=== PATIENT | male | born 1975 | race Caucasian/White ===

== ENCOUNTER 2016-04-21 09:16 | Emergency (ER) ==
[2016-04-21 10:03] LABS: URINE CULTURE PL NEEDED? NO; URINE SOURCE CLEAN CATCH
[2016-04-21 10:17] LABS: BILIRUBIN URINE NEGATIVE (NEGATIVE); BLOOD URINE NEGATIVE (NEGATIVE); CLARITY CLEAR (CLEAR); COLOR YELLOW; GLUCOSE URINE NEGATIVE (NEGATIVE); LEUKOCYTES URINE NEGATIVE (NEGATIVE); NITRITE URINE NEGATIVE (NEGATIVE); PROTEIN URINE TRACE mg/dL (NEGATIVE); URINE WBC <10 /HPF (<10); UROBILINOGEN URINE NORMAL
[2016-04-21 10:18] LABS: URINE EPITHELIAL CELLS <10 /HPF (<10)
[2016-04-21] MEDS ORDERED: ZOFRAN IV ONE (11:02)
[2016-04-21] MEDS ORDERED: MORPHINE IV ONE (11:02)
--- NOTE | 2016-04-21 11:06 | PROVIDER DOCUMENTATION ---
HPI-Abdominal Pain/GI Problem - General Source: patient - History of Present Illness-ABD Nature of Presenting Problems: Pt is 40 y/o M presents to the ED with abdominal pain. Pt states pain started 3 days ago. Pt states 2 days ago having subjective F. Pt states yesterday having bright red blood in stool. Pt denies N/V/D. Pt denies back pain. Abdominal Pain Onset Location: reports: RLQ, LLQ, suprapubic Pain Radiation: reports: no radiation Quality of Pain: reports: aching Severity in ED: reports: mild Onset/Duration: reports: 3 days ago Timing: reports: still present Activities at Onset: reports: light activity Exposure to sick contacts?: No Modifying Factors: improves with: nothing Associated Symptoms: reports: fever/chills (subjective F). denies: anxiety, arm pain, back/neck pain, chest pain, constipation, cough, diaphoresis, diarrhea , dizziness, EENT symptoms, fatigue, genitourinary problems, headaches, heartburn, joint pain, loss of appetite, malaise, muscle aches, sinus congestion /drainage, nausea, rash, seizure, shortness of breath, sensory/motor loss, pain with inspiration, swelling/mass in abdomen, syncope, vomiting, weakness, trouble walking Last BM: 3 days ago Dark Stools Present?: reports: bright red blood Rectal Bleeding: reports: blood mixed with stool Rectal Pain: reports: none Emesis Description: reports: none Bruising or Bleeding Gums?: No Similar Symptoms Previously?: Yes Recently seen or treated by another doctor?: No <Katie Britt - Last Filed: 04/21/16 12:38> <Jose Abad - Last Filed: 04/21/16 14:45> - General Chief Complaint: Flank Pain Stated Complaint: FLANK PAIN Time Seen by Provider: 04/21/16 10:49 Allergies/Adverse Reactions: Patient Allergies Allergy/AdvReac Type Severity Reaction Status Date / Time sulfamethoxazole Allergy SWELLING Verified 04/21/16 09:32 [From Bactrim] trimethoprim [From Bactrim] Allergy SWELLING Verified 04/21/16 09:32 Home Medications: Home Medication List Medication Instructions Recorded Confirmed Last Taken Type Amoxicillin/Potassium Clav 1 each PO BID #20 tablet 04/21/16 Unknown Rx [Augmentin 875-125 Tablet] Hydrocodone/Acetaminophen [[place] 1 each PO Q4-6H PRN PRN #12 tablet 04/21/16 Unknown Rx 5-325 Tablet] Metronidazole [Flagyl] 500 mg PO TID #30 tablet 04/21/16 Unknown Rx Review of Systems - Adult - REVIEW OF SYSTEMS - ADULT Constitutional: denies: chills, fever Eyes: denies: blurred vision, double vision Ears, Nose, Mouth & Throat: denies: ear pain, nose pain, throat pain Cardiovascular: denies: chest pain, heart murmur, irregular heart rate Respiratory: denies: cough, shortness of breath, wheezing Gastrointestinal: reports: abdominal pain (RLQ, LLQ, and suprapubic), rectal bleeding. denies: diarrhea, nausea, vomiting Genitourinary: denies: dysuria, hematuria Musculoskeletal: denies: bone pain, joint pain, neck pain Integumentary: denies: hives, itching Neurological: denies: dizziness/vertigo, headache/migraines Psychiatric: reports: no symptoms reported Endocrine: reports: no symptoms reported Hematologic/Lymphatic: reports: no symptoms reported Allergic/Immunologic: reports: no symptoms reported All Other Systems: Reviewed and Negative <Katie Britt - Last Filed: 04/21/16 12:38> Past History - Adult - PAST MEDICAL HISTORY-ADULT Review of Records: reports: Nursing Assessment Review, Medications Reviewed, Social history reviewed & non-contributory. Major Childhood Illnesses: reports: denies history Cardiovascular: reports: HTN Respiratory: reports: denies history Gastrointestinal: reports: denies history Obstetrical/Gynecological: reports: denies history Genitourinary: reports: kidney stones Musculoskeletal: reports: denies history Neurological: reports: denies history Endocrine/Immune: reports: denies history Other Conditions: reports: denies history - PRIOR SURGERIES/PROCEDURES Surgical/Procedure History: reports: reviewed, not pertinent - IMMUNIZATION STATUS Childhood Immunizations: See Nurse Assessment Flu Vaccine: See Nurse Assessment - FAMILY HISTORY Family History: reviewed, not pertinent - SOCIAL HISTORY Smoking: cigarettes, less than 1 pack/day Provider spent 3-5 mins advising pt. on dangers of tobacco.: Discussed manners to quit use, and f/u contacts for add'l counseling. Substance Use: alcohol Alcohol Use Frequency: every day Number of drinks per typical drinking period:: 3-4 drinks Living Situation: family <Katie Britt - Last Filed: 04/21/16 12:38> Physical Exam-General - PHYSICAL EXAM-ADULT Initial Vital Signs Reviewed: Yes - CONSTITUTIONAL General Appearance: appears well, alert, no apparent distress - EYES Eyes: PERRL/EOMI, pink conjunctivae, fundi clear, no AV nicking - HEAD, EARS, NOSE, MOUTH & THROAT HENMT: normocephalic/atraumatic, moist mucous membranes, normal ENT inspection, TMs normal, pharynx normal - NECK Neck: non-tender, full range of motion, supple, normal inspection - RESPIRATORY Respiratory: chest non-tender, lungs clear, normal breath sounds, no pleuratic chest pain, no respiratory distress, no accessory muscle use - CARDIOVASCULAR Cardiovascular: normal peripheral pulses, regular rate, rhythm, no edema, no gallop, no JVD, no murmur - GASTROINTESTINAL (ABDOMEN) Abdominal Exam: normal bowel sounds, soft, no organomegaly, no pulsatile mass, tenderness (RLQ, LLQ and suprapubic) - LYMPHATIC Lymphatic: no adenopathy - MUSCULOSKELETAL Back Exam: normal inspection, no CVA tenderness, no vertebral tenderness Extremity: normal range of motion, non-tender, no pedal edema, no calf tenderness - SKIN Integumentary: normal color, normal turgor, warm/dry - NEUROLOGIC Neurologic: grossly normal - PSYCHIATRIC Psych/Mental Status: normal mood/affect, oriented x 3 <Katie Britt - Last Filed: 04/21/16 12:38> Progress - PLAN OF CARE/RESULTS Progress/Plan/Lab Results: Laboratory Tests 04/21/16 09:55 Urine Source CLEAN CATCH Urine Color YELLOW Urine Clarity CLEAR Urine pH 6.0 Ur Specific [place] 1.020 Urine Protein TRACE A Urine Ketones NEGATIVE Urine Blood NEGATIVE Urine Nitrite NEGATIVE Urine Bilirubin NEGATIVE Urine Urobilinogen NORMAL Urine Microscopic RBC Not Reportable Urine WBC NEGATIVE Urine Microscopic WBC <10 Ur Epithelial Cells <10 Urine Bacteria 1+ Urine Glucose NEGATIVE Orders Category Date Time Status CT ABD/PELVIS W/ IV CONT ONLY [CT] Stat Exams 04/21/16 11:01 Ordered BASIC METABOLIC PANEL [CHEM] Stat Lab 04/21/16 11:01 Ordered CBC WITH ELECTRONIC DIFF [HEME] Stat Lab 04/21/16 11:01 Ordered UA [URINALYSIS PL W/POSS RFLX CULT] [URINALYSIS] Stat Lab 04/21/16 09:55 Completed Morphine Med 04/21/16 11:02 Discontinued 4 mg IV NOW ONE Ondansetron [Zofran] Med 04/21/16 11:02 Discontinued 8 mg IV NOW ONE Vital Signs - 24 hr 04/21/16 09:26 Temperature 98.2 F Pulse Rate 84 Respiratory 18 Rate O2 Sat by Pulse 98 Oximetry Laboratory Tests 04/21/16 04/21/16 04/21/16 09:55 11:18 11:18 WBC 10.08 RBC 5.29 Hgb 16.5 Hct 48.4 MCV 91.5 MCH 31.2 H MCHC 34.1 RDW Std Deviation 11.9 Plt Count 286 MPV 10.5 H Immature Gran % (Auto) 0.3 Neut % (Auto) 68.8 Lymph % (Auto) 22.7 [place] % (Auto) 6.8 Eos % (Auto) 1.1 Baso % (Auto) 0.3 Immature Gran # (Auto) 0.03 Neut # (Auto) 6.93 H Lymph # (Auto) 2.29 [place] # (Auto) 0.69 H Eos # (Auto) 0.11 Baso # (Auto) 0.03 Sodium 137 Potassium 4.1 Chloride 101 Carbon Dioxide 24 L Anion Gap 12 BUN 15 Creatinine 1.1 Estimated GFR/1.73 m2 > 60 BUN/Creatinine Ratio 14 Glucose 78 Calculated Osmolality 274 Calcium 9.9 Urine Source CLEAN CATCH Urine Color YELLOW Urine Clarity CLEAR Urine pH 6.0 Ur Specific [place] 1.020 Urine Protein TRACE A Urine Ketones NEGATIVE Urine Blood NEGATIVE Urine Nitrite NEGATIVE Urine Bilirubin NEGATIVE Urine Urobilinogen NORMAL Urine Microscopic RBC Not Reportable Urine WBC NEGATIVE Urine Microscopic WBC <10 Ur Epithelial Cells <10 Urine Bacteria 1+ Urine Glucose NEGATIVE - CT/MRI 1 CT Study: Abdomen, Pelvis Impression: Abnormal (apparent sold exophytic lesion in the right mid kidney. in the setting of a urinary tract infection, this could represent a renal carbuncle, however, the possiblity of a solid renal neoplasm cannot be excluded. ) CT Results: sigmoid diverticulitis, as described <Katie Britt - Last Filed: 04/21/16 12:38> Departure <Katie Britt - Last Filed: 04/21/16 12:38> - Departure Time of Disposition Order: 14:42 Certified Medical Emergency: Emergent <Jose Abad Last Filed: 04/21/16 14:45> - Departure DIAGNOSIS: Diverticulitis of sigmoid colon Disposition: HOME 01 Condition: Good Additional Instructions: ED Follow Up Instructions: You have been treated by a care provider in the Emergency Department. These instructions are being provided to you so you can have an understanding of how to care for yourself upon discharge. Upon discharge from the Emergency Department, you are responsible for making arrangements for follow-up care by a physician of your choice. Take all prescribed medications as directed. Return to the Emergency Department immediately for any new or worsening symptoms. You may call the Physician Referral phone number at [phone] to obtain a list of Physicians who are taking new patients. Prescriptions: Amoxicillin/Potassium Clav [Augmentin 875-125 Tablet] 1 each PO BID #20 tablet Metronidazole [Flagyl] 500 mg PO TID #30 tablet Hydrocodone/Acetaminophen [[place] 5-325 Tablet] 1 each PO Q4-6H PRN PRN #12 tablet PRN Reason: Pain Referrals: None,PCP [Primary Care Provider] - Greg Dash MD [STAFF PHYSICIAN] - Instructions: Diverticulitis Attestation - Scribe Verification/Attestation Scribe:: Katie Britt Acting as Scribe for:: Jose Abad Scribe documention review:: This chart was documented by a scribe and accurately reflects the service the provider performed and the decisions made by the provider. <Katie Britt - Last Filed: 04/21/16 12:38> Physician Attestation - Physician Attestation I, the provider, attest to the following statement:: Jose Abad Physician documentation Attestation:: This documentation recorded by the scribe accurately reflects the service I personally performed and the decisions made by me. <Jose Abad - Last Filed: 04/21/16 14:45>
[2016-04-21 11:47] LABS: AGAP 12; BUN 15 mg/dL (8-22); CALCIUM 9.9 mg/dL (8.8-10.2); CHLORIDE 101 mmol/L (98-107); COSMO 274; POTASSIUM 4.1 mmol/L (3.5-5.1); SODIUM 137 mmol/L (136-145); TCO2 24 mmol/L (25-35)
[2016-04-21 11:55] LABS: BASO% 0.3 % (0.0-0.8); EOS# 0.11 X1000 (0.0-0.7); EOS% 1.1 % (0.0-10.0); HEMATOCRIT 48.4 % (42.0-52.0); HEMOGLOBIN 16.5 g/dL (14.0-18.0); IMM GRAN# 0.03 X1000 (0.0-0.04); IMM GRAN% 0.3 % (0.0-0.5); LYMPH# 2.29 X1000 (1.2-3.4); LYMPH% 22.7 % (20.5-51.1); MANUAL DIFF NEEDED? NO; MCH 31.2 PG (27-31); MCHC 34.1 g/dL (33-37); MCV 91.5 FL (81-99); MONO# 0.69 X1000 (0.11-0.59); MONO% 6.8 % (1.7-9.3); MPV 10.5 FL (7.4-10.4); NEUT% 68.8 % (42.2-75.2); PLT 286 X1000 (130-400); RBC 5.29 XMIL (4.7-6.1)
--- NOTE | 2016-04-21 12:31 | Diag Imaging Result Document ---
PROCEDURE NAME: CT ABD/PELVIS W/ IV CONT ONLY - 04/21/2016 CT OF THE ABDOMEN WITH INTRAVENOUS CONTRAST: FINDINGS: The visualized portion of the chest is unremarkable. There are there are multiple cysts in both kidneys. There is an enhancing exophytic lesion arising from the lateral portion of the right kidney measuring 17 mm in diameter. There are no previous studies. There is no evidence of hydronephrosis. There may be some small caliceal stones in the left kidney. The largest of these is in the lower pole measuring less than 5 mm in diameter. There are no gallstones. There is no evidence of bowel obstruction. The pancreas is unremarkable. The adrenal glands and spleen are not enlarged. CT OF THE PELVIS: FINDINGS: There is diverticulosis in the distal descending colon and sigmoid colon. There is inflammation and extra luminal gas adjacent to the proximal sigmoid. The latter is located posterior to the sigmoid and may represent an early abscess. The appendix is normal in appearance. There is no evidence of free fluid. The urinary bladder is unremarkable in appearance. There are scattered bone islands in the pelvis. IMPRESSION: 1. Sigmoid diverticulitis, as described. 2. Apparent solid exophytic lesion in the right mid kidney. In the setting of a urinary tract infection, this could represent a renal carbuncle, however, the possibility of a solid renal neoplasm cannot be excluded.
[2016-04-21 14:55] VITALS: BP 151/93
== END 2016-04-21 14:54 | disposition home or self-care (01) ==
LOC: P.ED 09:16
DX: K57.32 Diverticulitis of large intestine without perforation or abscess without bleeding (principal); K62.5 Hemorrhage of anus and rectum; K92.1 Melena; R50.9 Fever, unspecified; R10.32 Left lower quadrant pain; R10.31 Right lower quadrant pain; I10 Essential (primary) hypertension; R10.814 Left lower quadrant abdominal tenderness; R10.813 Right lower quadrant abdominal tenderness; F17.210 Nicotine dependence, cigarettes, uncomplicated; Z71.6 Tobacco abuse counseling; Z87.442 Personal history of urinary calculi
CPT/HCPCS: 74177; 80048; 81001; 85025; J2270; J2405; Q9967